=== PATIENT | male | born 1990 | race Caucasian/White ===

== ENCOUNTER 2016-06-29 13:27 | Emergency (ER) | payer OTHER, BC ==
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
[2016-06-29 15:45] VITALS: BP 114/60
== END 2016-06-29 14:17 | disposition home or self-care (01) ==
LOC: MW.ED 13:27
DX: Z77.21 Contact with and (suspected) exposure to potentially hazardous body fluids (principal); F17.210 Nicotine dependence, cigarettes, uncomplicated
CPT/HCPCS: 36415; 86706; 86803; 87389; 99283

== ENCOUNTER 2018-01-02 12:46 | Emergency (ER) | payer OTHER ==
[2018-01-02 13:02] VITALS: BP 143/74
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
== END 2018-01-02 13:30 | disposition home or self-care (01) ==
LOC: MW.ED 12:46
DX: S60.455A Superficial foreign body of left ring finger, initial encounter (principal); W45.8XXA Other foreign body or object entering through skin, initial encounter
CPT/HCPCS: 36415; 86317; 86803; 87389; 99282; 99283

== ENCOUNTER 2019-11-14 03:21 | Emergency (ER) | payer BC, OTHER ==
[2019-11-14] MEDS ORDERED: Sodium Chloride 0.9% 2.5 ML Syringe FLUSH PRN (03:45)
[2019-11-14] MEDS ORDERED: Ondansetron 4 MG/2 ML SDV IVPUSH ONE (03:45)
[2019-11-14] MEDS ORDERED: Ketorolac 15 MG/ML SDV IVPUSH ONE (03:45)
[2019-11-14] MEDS ORDERED: Sodium Chloride 0.9% 10 ML Syringe FLUSH PRN (03:45)
[2019-11-14] MEDS ORDERED: Sodium Chloride 0.9% 1,000 ML IV ONE (03:45)
[2019-11-14 04:05] LABS: BLOOD UREA NITROGEN,BUN 15 mg/dL (7.0-18.0); CARBON DIOXIDE,CO2 24.1 mmol/L (21.0-32.0); CHLORIDE,CL 103 mmol/L (98-107); GLUCOSE RANDOM 100 mg/dL (74-106); POTASSIUM,K 3.5 mmol/L (3.5-5.1); SODIUM,NA 137 mmol/L (136-148)
--- NOTE | 2019-11-14 04:58 | EDM.PDOC ---
ED HPI GENERAL MEDICAL PROBLEM - General Chief Complaint: Flank Pain Stated Complaint: LEFT FLANK PAIN Time Seen by Provider: 11/14/19 04:34 - History of Present Illness INITIAL COMMENTS - FREE TEXT/NARRATIVE: HISTORY AND PHYSICAL: History of present illness: This is a 28-year-old gentleman with no significant past medical history presents ER today with of left lower quadrant and left flank pain that started approximately 3 AM which woke him from a sleep. Patient denies any other symptomatology. Patient denies any recent fevers, shakes, chills, dysuria, frequency, urgency. Patient reports he was nauseous with the pain however no vomiting or diarrhea. Patient denies any melena or bright red blood per rectum. Patient reports that the pain is colicky in nature. Patient denies any history of hypertension, diabetes, liver, lung, kidney problems. Review of systems: As per history of present illness and below otherwise all systems reviewed and negative. Past medical history: As per history of present illness and as reviewed below otherwise noncontributory. Surgical history: As per history of present illness and as reviewed below otherwise noncontributory. Social history: No reported history of drug or alcohol abuse. Family history: As per history of present illness and as reviewed below otherwise noncontributory. Physical exam: Constitutional: Patient is oriented to person, place, and time. Appears well- developed and well-nourished. No distress. HEENT: Moist mucous membranes Head: Normocephalic and atraumatic Eyes: Right eye exhibits no discharge. Left eye exhibits no discharge. No scleral icterus Neck: Normal range of motion. No tracheal deviation present. Cardiovascular: Normal rate and regular rhythm. Pulmonary: Effort normal, no respiratory distress. Abd: Soft, nondistended, no rebound/guarding, no psoas or obturator signs, no tenderness at Mcberney's point, no Moeller's sign. Pt does not present with an exam that would be consistent with an acute surgical abdomen at this time. Tenderness to palpation left lower quadrant. Tenderness to palpation left flank. Musculoskeletal: Normal range of motion Neurologic: Alert and oriented to person, place and time. Skin: National, warm and dry. Psychiatric: Normal mood and affect. Behavior is normal. Judgment and thought content normal. Nursing note and vital signs have been reviewed Assessment and plan: This is a 28-year-old gentleman who presents ER today with signs and symptoms concerning for likely renal colic. Patient presentation is low risk for diverticulitis, appendicitis, AAA. CT scan of the abdomen pelvis without contrast will be ordered in order to to evaluate his tract. Patient be given Toradol and Zofran as well as 1 L normal saline for empiric treatment of likely kidney stone. 4:57 AM: Patient reports he feels significant improved and is declining any further pain management at this time. Patient's labs are significant for hematuria. Patient CBC and CMP are within normal limits. 5:48 a.m.: CT scan of the abdomen pelvis reveals a tiny calcification at the UVJ. No hydronephrosis at this time. Patient symptoms and presentation and hematuria as well as a tiny calcification of the UVJ make it likely that the patient symptoms are related to renal colic. Patient currently is pain-free. Patient will be discharged home with Hytrin, ibuprofen, Ultram, Zofran. Reassessment at the time of disposition demonstrates that the patient is in no acute distress. The patient has remained stable throughout the entire ED visit and is without objective evidence for acute process requiring urgent intervention or hospitalization. The patient is stable for discharge, counseling is provided as documented above, discussed symptomatic treatment and specific conditions for return. I have spoken with the patient/caregive and discussed todays findings, in addition to providing specific details for the plan of care. Questions are answered and there is agreement with the plan. Definitive disposition and diagnosis as appropriate pending reevaluation and review of above. L flank Pain Score (Numeric/FACES): 5 - Related Data Allergies Allergy/AdvReac Type Severity Reaction Status Date / Time No Known Allergies Allergy Verified 11/14/19 03:45 Home Meds: Home Meds Ibuprofen 600 mg PO Q6HR PRN #30 tablet 11/14/19 [Rx] Ondansetron [Zofran ODT] 4 mg PO Q6H PRN #12 tab.dis 11/14/19 [Rx] Tamsulosin HCl [Flomax] 0.4 mg PO DAILY #5 capsule 11/14/19 [Rx] traMADol [Ultram] 50 mg PO Q6H PRN #12 tab 11/14/19 [Rx] Past Medical History - Past Health History Medical/Surgical History: Denies Medical/Surgical History HEENT History: Reports: None Cardiovascular History: Reports: None Respiratory History: Reports: None Gastrointestinal History: Reports: Other (See Below) Other Gastrointestinal History: acid reflux Genitourinary History: Reports: None Musculoskeletal History: Reports: Other (See Below) Other Musculoskeletal History: Recent Sprain/strain to hamstring noted in history Neurological History: Reports: Other (See Below) Other Neuro History: reports hx of TBI Psychiatric History: Reports: Anxiety, Other (See Below) Other Psychiatric History: Little anxiety recently related to this Endocrine/Metabolic History: Reports: None Hematologic History: Reports: Other (See Below) Other Hematologic History: Coffee ground emesis and loose tarry stools noted Immunologic History: Reports: None Oncologic (Cancer) History: Reports: None Dermatologic History: Reports: None - Infectious Disease History Infectious Disease History: Reports: Chicken Pox - Past Surgical History Head Surgeries/Procedures: Reports: None HEENT Surgical History: Reports: Tonsillectomy Cardiovascular Surgical History: Reports: None Respiratory Surgical History: Reports: None GI Surgical History: Reports: None Male Surgical History: Reports: None Endocrine Surgical History: Reports: None Neurological Surgical History: Reports: None Musculoskeletal Surgical History: Reports: None Oncologic Surgical History: Reports: None Dermatological Surgical History: Reports: None Social & Family History - Family History Family Medical History: Noncontributory - Tobacco Use Smoking Status *Q: Never Smoker Second Hand Smoke Exposure: No - Caffeine Use Caffeine Use: Reports: None - Recreational Drug Use Recreational Drug Use: No ED ROS GENERAL - Review of Systems Review Of Systems: Comprehensive ROS is negative, except as noted in HPI. ED EXAM, GENERAL - Physical Exam Exam: See Below Course - Vital Signs Last Recorded V/S: Last Vital Signs Temp 96.1 F L 11/14/19 03:24 Pulse 69 11/14/19 05:30 Resp 17 11/14/19 05:30 BP 125/78 11/14/19 05:30 Pulse Ox 96 11/14/19 05:30 - Orders/Labs/Meds Orders: Active Orders 24 hr Category Date Time Status Saline Lock Insert [OM.PC] Stat Oth 11/14/19 03:45 Ordered Labs: Laboratory Tests 11/14/19 11/14/19 11/14/19 Range/Units 00:36 00:36 04:28 WBC 12.38 H (4.0-11.0) K/uL RBC 5.49 (4.50-5.90) M/uL Hgb 16.2 (13.0-17.0) g/dL Hct 47.7 (38.0-50.0) % MCV 86.9 (80.0-98.0) fL MCH 29.5 (27.0-32.0) pg MCHC 34.0 (31.0-37.0) g/dL RDW Std Deviation 42.2 (28.0-62.0) fl RDW Coeff of Chelsie 14 (11.0-15.0) % Plt Count 247 (150-400) K/uL MPV 10.10 (7.40-12.00) fL Neut % (Auto) 47.6 L (48.0-80.0) % Lymph % (Auto) 41.3 H (16.0-40.0) % Story % (Auto) 9.5 (0.0-15.0) % Eos % (Auto) 1.2 (0.0-7.0) % Baso % (Auto) 0.4 (0.0-1.5) % Neut # (Auto) 5.9 H (1.4-5.7) K/uL Lymph # (Auto) 5.1 H (0.6-2.4) K/uL Story # (Auto) 1.2 H (0.0-0.8) K/uL Eos # (Auto) 0.2 (0.0-0.7) K/uL Baso # (Auto) 0.1 (0.0-0.1) K/uL Sodium 137 (136-148) mmol/L Potassium 3.5 (3.5-5.1) mmol/L Chloride 103 (98-107) mmol/L Carbon Dioxide 24.1 (21.0-32.0) mmol/L BUN 15 (7.0-18.0) mg/dL Creatinine 1.1 (0.8-1.3) mg/dL Est Cr Clr Drug Dosing TNP Estimated GFR (MDRD) > 60.0 ml/min Glucose 100 (74-106) mg/dL Calcium 8.4 L (8.5-10.1) mg/dL Total Bilirubin 0.4 (0.2-1.0) mg/dL AST 33 (15-37) IU/L ALT 65 H (14-63) IU/L Alkaline Phosphatase 68 (46-116) U/L Total Protein 7.5 (6.4-8.2) g/dL Albumin 4.1 (3.4-5.0) g/dL Globulin 3.4 (2.6-4.0) g/dL Albumin/Globulin Ratio 1.2 (0.9-1.6) Urine Color YELLOW Urine Appearance CLEAR Urine pH 6.0 (5.0-8.0) Ur Specific [place] >= 1.030 (1.001-1.035) Urine Protein NEGATIVE (NEGATIVE) mg/dL Urine Glucose (UA) NEGATIVE (NEGATIVE) mg/dL Urine Ketones NEGATIVE (NEGATIVE) mg/dL Urine Occult Blood MODERATE H (NEGATIVE) Urine Nitrite NEGATIVE (NEGATIVE) Urine Bilirubin NEGATIVE (NEGATIVE) Urine Urobilinogen 0.2 (<2.0) EU/dL Ur Leukocyte Esterase NEGATIVE (NEGATIVE) Urine RBC 2-6 (0-2/HPF) Urine WBC 0-1 (0-5/HPF) Ur Epithelial Cells RARE (NONE-FEW) Urine Bacteria FEW (NEGATIVE) Urine Mucus LIGHT (NONE-MOD) Meds: Medications Discontinued Medications Generic Name Dose Route Start Last Admin Trade Name Freq PRN Reason Stop Dose Admin Sodium Chloride 1,000 mls @ 999 mls/hr 11/14/19 03:45 11/14/19 03:55 Normal Saline IV 11/14/19 04:45 999 mls/hr .Bolus ONE Administration Ketorolac Tromethamine 30 mg 11/14/19 03:45 11/14/19 03:56 Toradol IVPUSH 11/14/19 03:46 30 mg ONETIME ONE Administration Ondansetron HCl 4 mg 11/14/19 03:45 11/14/19 03:55 Zofran IVPUSH 11/14/19 03:46 4 mg ONETIME ONE Administration Sodium Chloride 10 ml 11/14/19 03:45 Saline Flush FLUSH ASDIRECTED PRN Keep Vein Open Sodium Chloride 2.5 ml 11/14/19 03:45 Saline Flush FLUSH ASDIRECTED PRN Keep Vein Open Departure - Departure Time of Disposition: 03:00 Disposition: Home, Self-Care 01 Condition: Good Clinical Impression: Ureteric colic - Discharge Information Prescriptions: Tamsulosin HCl [Flomax] 0.4 mg PO DAILY #5 capsule Ibuprofen 600 mg PO Q6HR PRN #30 tablet PRN Reason: Pain traMADol [Ultram] 50 mg PO Q6H PRN #12 tab PRN Reason: Pain Ondansetron [Zofran ODT] 4 mg PO Q6H PRN #12 tab.dis PRN Reason: Nausea Instructions: Renal Colic Referrals: PCP,None [Primary Care Provider] - Forms: ED Department Discharge Additional Instructions: Your evaluation today makes it likely that the pain that you are experiencing is from a left-sided kidney stone. The kidney stone appears to be extremely small on the CT scan and so it should pass on its own. You have been given a prescription for ibuprofen, Ultram to help with the pain. A prescription for Zofran to assist with nausea. A prescription for Flomax to help pass the stone. You will be given the phone number for our urology urologist to call for follow-up if the pain should persist. [facility] - Urology [address] [place] [id number] The following information is given to patients seen in the emergency department who are being discharged to home. This information is to outline your options for follow-up care. We provide all patients seen in our emergency department wit h a follow-up referral. The need for follow-up, as well as the timing and circumstances, are variable depending upon the specifics of your emergency department visit. If you don't have a primary care physician on staff, we will provide you with a referral. We always advise you to contact your personal physician following an emergency department visit to inform them of the circumstance of the visit and for follow-up with them and/or the need for any referrals to a consulting specialist. The emergency department will also refer you to a specialist when appropriate. This referral assures that you have the opportunity for follow-up care with a specialist. All of these measure are taken in an effort to provide you with optimal care, which includes your follow-up. Under all circumstances we always encourage you to contact your private physician who remains a resource for coordinating your care. When calling for follow-up care, please make the office aware that this follow-up is from your recent emergency room visit. If for any reason you are refused follow-up, please contact the [facility] Emergency Department at and asked to speak to the emergency department charge nurse. Sepsis Event Note (ED) - Evaluation Sepsis Screening Result: No Definite Risk - My Orders Last 24 Hours: My Active Orders 11/14/19 03:45 Saline Lock Insert [OM.PC] Stat - Assessment/Plan Last 24 Hours: My Active Orders 11/14/19 03:45 Saline Lock Insert [OM.PC] Stat
[2019-11-14 05:35] VITALS: BP 125/78; PULSE 69
--- NOTE | 2019-11-14 05:43 | CT ---
INDICATION: Left flank pain TECHNIQUE: CT abdomen and pelvis without contrast. COMPARISON: 12/05/2014 FINDINGS: Lower chest: Unremarkable. Liver: Unremarkable. Spleen: Unremarkable. Pancreas: Unremarkable. Gallbladder and bile ducts: Unremarkable. Adrenal glands: Unremarkable. Kidneys: No hydronephrosis. Several punctate nonobstructive bilateral renal calcifications. No discrete, measurable ureteral calcifications seen. Mild focal prominence of the distal left ureter could be physiologic. An apparent tiny ill-defined linear density at the left UVJ on image 132 of series 201, versus artifact. GI tract: Unremarkable. Appendix is normal. Vascular structures: Unremarkable. Lymph nodes: Unremarkable. Miscellaneous: No free air or significant free fluid. Pelvic Organs: Unremarkable. Bones: Bilateral L5 spondylolysis. IMPRESSION: No obstructive uropathy. Punctate nonobstructive renal calcifications. An apparent tiny density at the left UVJ could be artifactual, however correlate with urinalysis. Dictated by Billy Oakley MD @ 11/14/2019 5:42:05 AM Please note that all CT scans at this facility use dose modulation, iterative reconstruction, and/or weight-based dosing when appropriate to reduce radiation dose to as low as reasonably achievable. Dictated by: Billy Oakley MD @ 11/14/2019 05:42:11 (Electronically Signed)
== END 2019-11-14 06:04 | disposition home or self-care (01) ==
LOC: MW.ED 03:21
DX: N23 Unspecified renal colic (principal); Z79.899 Other long term (current) drug therapy
CPT/HCPCS: 36415; 74176; 80053; 81001; 85025; 96374; 96375; 99284; J1885; J2405; J7030

== ENCOUNTER 2021-07-15 02:23 | Emergency (ER) | payer OTHER ==
[2021-07-15] MEDS ORDERED: Ketorolac 30 MG/ML SDV IVPUSH ONE (02:32)
[2021-07-15] MEDS ORDERED: Ondansetron 4 MG/2 ML SDV IVPUSH ONE ×2 (02:33→03:39)
[2021-07-15] MEDS ORDERED: HYDROmorphone 1 MG/ML Syringe IVPUSH ONE (02:55)
[2021-07-15] MEDS ORDERED: HYDROmorphone 1 MG/ML Syringe ONE (02:55)
[2021-07-15] MEDS ORDERED: Ondansetron 4 MG/2 ML SDV ONE (03:38)
[2021-07-15] MEDS ORDERED: Morphine 4 MG/ML VIAL IVPUSH STA (04:27)
[2021-07-15 04:46] VITALS: BP 125/78; PULSE 81
== END 2021-07-15 04:47 | disposition home or self-care (01) ==
LOC: MW.ED 02:23
DX: N20.0 Calculus of kidney (principal)
CPT/HCPCS: 74176; 81001; 96374; 96375; 96376; 99284; J1170; J1885; J2270; J2405

== ENCOUNTER 2021-08-23 08:13 | Observation (INO) | payer OTHER ==
[2021-08-23] MEDS ORDERED: Lactated Ringers 1,000 ML IV STA ×2 (08:19→13:59)
[2021-08-23] MEDS ORDERED: Ketorolac 30 MG/ML SDV IVPUSH STA ×2 (08:19→14:33)
[2021-08-23] MEDS ORDERED: Ondansetron 4 MG/2 ML SDV IVPUSH ONE ×2 (08:31→09:20)
[2021-08-23] MEDS ORDERED: Ondansetron 4 MG/2 ML SDV ONE (08:32)
[2021-08-23] MEDS ORDERED: Morphine 4 MG/ML VIAL IVPUSH STA (08:38)
[2021-08-23 08:52] LABS: BLOOD UREA NITROGEN,BUN 11 mg/dL (7.0-18.0); CARBON DIOXIDE,CO2 26.7 mmol/L (21.0-32.0); CHLORIDE,CL 101 mmol/L (98-107); GLUCOSE RANDOM 109 mg/dL (74-106); POTASSIUM,K 3.8 mmol/L (3.5-5.1); SODIUM,NA 138 mmol/L (136-148)
[2021-08-23] MEDS ORDERED: Tamsulosin 0.4 MG Cap.ER PO ONE (09:14)
[2021-08-23] MEDS ORDERED: HYDROmorphone 1 MG/ML Syringe IVPUSH STA (09:19)
[2021-08-23] MEDS ORDERED: HYDROmorphone 1 MG/ML Syringe IVPUSH ONE (10:08)
[2021-08-23] MEDS ORDERED: Sodium Chloride 0.9% 1,000 ML IV SCH (10:15)
[2021-08-23] MEDS ORDERED: Promethazine 25 MG/ML SDV IM ONE (10:23)
[2021-08-23] MEDS ORDERED: Cephalexin 500 MG Cap PO STA (12:14)
[2021-08-23] MEDS ORDERED: fentaNYL 50 MCG/ML SDV IVPUSH ONE ×2 (12:27→13:57)
[2021-08-23] MEDS ORDERED: Ketorolac 30 MG/ML SDV IM STA (13:57)
[2021-08-23] MEDS ORDERED: Morphine 2 MG/ML SYRINGE IVPUSH PRN (16:46)
[2021-08-23] MEDS: HYDROmorphone 1 MG/ML Syringe IVPUSH PRN ×3 (17:40→22:08)
[2021-08-23] MEDS ORDERED: busPIRone 5 MG Tab PO SCH (21:00)
[2021-08-23] MEDS ORDERED: BUSPIRONE 7.5 MG PO SCH (21:30)
[2021-08-23] MEDS ORDERED: Ondansetron 4 MG/2 ML SDV IVPUSH PRN (21:53)
[2021-08-24] MEDS: HYDROmorphone 1 MG/ML Syringe IVPUSH PRN ×3 (00:41→07:08)
[2021-08-24 07:18] LABS: BLOOD UREA NITROGEN,BUN 11 mg/dL (7.0-18.0); CARBON DIOXIDE,CO2 24.6 mmol/L (21.0-32.0); CHLORIDE,CL 104 mmol/L (98-107); GLUCOSE RANDOM 93 mg/dL (74-106); POTASSIUM,K 3.7 mmol/L (3.5-5.1); SODIUM,NA 140 mmol/L (136-148)
[2021-08-24 12:32] VITALS: BP 128/71; PULSE 76
[2021-08-24] MEDS ORDERED: Acetaminophen 325 MG/10.15 ML ML PO PRN (12:53)
== END 2021-08-24 15:50 | disposition home or self-care (01) ==
LOC: MW.ED 08:13 → MW.MS 14:20
PROVIDERS: ADMIT Internal Medicine; ATTEND Internal Medicine
DX: N13.2 Hydronephrosis with renal and ureteral calculous obstruction (principal); F17.210 Nicotine dependence, cigarettes, uncomplicated; Z79.899 Other long term (current) drug therapy; Z98.890 Other specified postprocedural states; Z20.822 Contact with and (suspected) exposure to COVID-19
CPT/HCPCS: 36415; 74176; 80048; 81001; 82365; 85025; 87635; 93005; A9270; J1170; J1885; J2270; J2405; J2550; J3010; J7030; J7120; 93010; 96372; 96374; 96375; 96376; 99284; 99285-25; G0378; U0002

== ENCOUNTER 2021-10-29 12:10 | Emergency (ER) | payer OTHER ==
[2021-10-29] MEDS ORDERED: Ondansetron 4 MG/2 ML SDV IVPUSH ONE (12:40)
[2021-10-29] MEDS ORDERED: HYDROmorphone 1 MG/ML Syringe IVPUSH ONE (12:40)
[2021-10-29] MEDS ORDERED: Ketorolac 30 MG/ML SDV IVPUSH ONE (12:40)
[2021-10-29] MEDS ORDERED: Sodium Chloride 0.9% 1,000 ML IV ONE ×2 (12:40→13:51)
[2021-10-29 13:14] LABS: CARBON DIOXIDE,CO2 27.4 mmol/L (21.0-32.0)
[2021-10-29] MEDS ORDERED: HYDROmorphone 2 MG/ML Syringe IVPUSH ONE ×2 (13:28→14:53)
[2021-10-29] MEDS ORDERED: Prochlorperazine 10 MG/2 ML SDV IVPUSH ONE (14:30)
[2021-10-29 15:47] VITALS: BP 150/80; PULSE 92
== END 2021-10-29 15:38 | disposition home or self-care (01) ==
LOC: MW.ED 12:10
DX: N13.2 Hydronephrosis with renal and ureteral calculous obstruction (principal)
CPT/HCPCS: 36415; 74176; 80053; 81001; 83690; 85025; 96361; 96374; 96375; 96376; 99284; J0780; J1170; J1885; J2405; J7030

== ENCOUNTER 2021-10-29 19:53 | Emergency (ER) | payer OTHER ==
[2021-10-29 20:50] LABS: CARBON DIOXIDE,CO2 24.6 mmol/L (21.0-32.0); POTASSIUM,K 3.6 mmol/L (3.5-5.1)
[2021-10-29] MEDS ORDERED: LORazepam 2 MG/ML SDV IVPUSH ONE (21:12)
[2021-10-30 01:36] VITALS: BP 132/86; PULSE 82
== END 2021-10-29 22:50 | disposition home or self-care (01) ==
LOC: MW.ED 19:53
DX: R07.89 Other chest pain (principal); T43.3X5A Adverse effect of phenothiazine antipsychotics and neuroleptics, initial encounter; K21.9 Gastro-esophageal reflux disease without esophagitis; Z79.899 Other long term (current) drug therapy; Z86.16 Personal history of COVID-19
CPT/HCPCS: 36415; 71045; 80053; 84484; 85025; 85379; 93005; 96374; 99285; J2060

== ENCOUNTER 2022-05-18 00:34 | Emergency (ER) | payer OTHER ==
[2022-05-18] MEDS ORDERED: Lactated Ringers 1,000 ML IV ONE (00:39)
[2022-05-18] MEDS ORDERED: HYDROmorphone 1 MG/ML Syringe IVPUSH ONE ×2 (00:39→02:01)
[2022-05-18] MEDS ORDERED: Ondansetron 4 MG/2 ML SDV IVPUSH ONE (00:40)
[2022-05-18] MEDS ORDERED: Ketorolac 30 MG/ML SDV IVPUSH ONE ×2 (00:40→03:34)
[2022-05-18 01:23] LABS: BLOOD UREA NITROGEN,BUN 17 mg/dL (7.0-18.0); CARBON DIOXIDE,CO2 27.9 mmol/L (21.0-32.0); CHLORIDE,CL 104 mmol/L (98-107); GLUCOSE RANDOM 104 mg/dL (74-106); POTASSIUM,K 4.2 mmol/L (3.5-5.1); SODIUM,NA 141 mmol/L (136-148)
[2022-05-18 01:29] LABS: ESTIMATED GFR 83 mL/min (>60)
[2022-05-18] MEDS ORDERED: Lactated Ringers 1,000 ML IV STA (02:04)
[2022-05-18 02:53] LABS: CORONAVIRUS COVID-19 NAA NEGATIVE (NEGATIVE); INFLUENZA A NAA NEGATIVE (NEGATIVE); INFLUENZA B NAA NEGATIVE (NEGATIVE)
[2022-05-18 03:22] VITALS: BP 125/85; PULSE 62
[2022-05-18] MEDS ORDERED: oxyCODONE 5 MG Tab PO ONE (03:34)
== END 2022-05-18 03:50 | disposition home or self-care (01) ==
LOC: MW.ED 00:34
DX: N13.2 Hydronephrosis with renal and ureteral calculous obstruction (principal); Z88.8 Allergy status to other drugs, medicaments and biological substances; Z20.822 Contact with and (suspected) exposure to COVID-19
CPT/HCPCS: 0240U; 36415; 74176; 80048; 81001; 85025; 96361; 96374; 96375; 96376; 99284; A9270; J1170; J1885; J2405; J7120

== ENCOUNTER 2022-05-18 19:33 | Emergency (ER) | payer OTHER ==
[2022-05-18] MEDS ORDERED: Ketorolac 30 MG/ML SDV IVPUSH ONE (19:48)
[2022-05-18] MEDS ORDERED: Sodium Chloride 0.9% 1,000 ML IV ONE (19:48)
[2022-05-18] MEDS ORDERED: Ondansetron 4 MG/2 ML SDV IVPUSH ONE (20:03)
[2022-05-18] MEDS ORDERED: Acetaminophen/oxyCODONE 325-10 MG Tab PO ONE (21:09)
[2022-05-18 21:11] LABS: BLOOD UREA NITROGEN,BUN 15 mg/dL (7.0-18.0); CARBON DIOXIDE,CO2 27.1 mmol/L (21.0-32.0); CHLORIDE,CL 102 mmol/L (98-107); GLUCOSE RANDOM 94 mg/dL (74-106); POTASSIUM,K 4.2 mmol/L (3.5-5.1); SODIUM,NA 139 mmol/L (136-148)
[2022-05-18 21:19] LABS: ESTIMATED GFR 55 mL/min (>60)
[2022-05-18] MEDS ORDERED: traMADol 50 MG Tab PO ONE (21:21)
[2022-05-18 21:59] VITALS: BP 142/79; PULSE 61
== END 2022-05-18 21:59 | disposition home or self-care (01) ==
LOC: MW.ED 19:33
DX: N13.2 Hydronephrosis with renal and ureteral calculous obstruction (principal); Z88.8 Allergy status to other drugs, medicaments and biological substances; Z86.16 Personal history of COVID-19
CPT/HCPCS: 36415; 80053; 81001; 85025; 96361; 96374; 96375; 99284; A9270; J1885; J2405; J7030

== ENCOUNTER 2022-09-19 11:08 | Emergency (ER) | payer OTHER ==
[2022-09-19] MEDS ORDERED: Diphtheria,Pertussis(Acell),Tetanus Vaccine 0.5 ML Syringe IM ONE (11:19)
[2022-09-19 11:47] VITALS: BP 136/84; PULSE 90
[2022-09-19 14:57] LABS: HEPATITIS C AB# 0.11 INDEX (<0.8)
== END 2022-09-19 12:17 | disposition home or self-care (01) ==
LOC: MW.ED 11:08
DX: Z13.0 Encounter for screening for diseases of the blood and blood-forming organs and certain disorders involving the immune mechanism (principal); Z88.8 Allergy status to other drugs, medicaments and biological substances; Z23 Encounter for immunization; Z86.16 Personal history of COVID-19
CPT/HCPCS: 36415; 86706; 86803; 87340; 87389; 90471; 90715; 99283; 99283-25